=== PATIENT | female | born 1990 | race Two or more races ===

== ENCOUNTER 2024-09-08 09:17 | Inpatient (IN) | payer MEDICAID, SELFPAY ==
--- NOTE | 2024-09-08 | XR_ITS ---
Examination: MRV brain without intravenous contrast TECHNIQUE: Multiple MR venous angiographic images without intravenous contrast 3-D reconstructions Sudden onset vision left eye beginning 2 weeks ago. FINDINGS: Images are degraded by patient motion Sagittal sinus straight sinus internal cerebral vein and transverse venous channels are open No filling defects depicted IMPRESSION: No filling defects in the demonstrated venous system
--- NOTE | 2024-09-08 | XR_ITS ---
Examinations: MRI Brain without intravenous contrast. MRA brain without intravenous contrast. MRA carotids without intravenous contrast 3-D vascular reconstructions Date and time of exam: September 08, 2024 1201 hours INDICATIONS: Headaches loss of vision in the left eye beginning 2 weeks ago Technique: Multiple axial and sagittal images of the brain have been obtained MRA brain carotid images without contrast obtained, including 3-D postprocessing, vascular maximum intensity projection images Findings: Sellaturcica is not enlarged. The optic chiasm and infundibular stalk are not remarkable. Prepontine and interpeduncular cisterns are not enlarged. No localized enlargement of the medulla or alfonso. Fourth ventricle and cerebellar tonsils normal in position. Subacute hemorrhage is not seen. Fourth ventricle is midline. Mass in the cerebellopontine angle region is not evident. 7th and 8th nerve complexes exhibits symmetry. Globes are symmetrical with no retro-orbital mass. Increased white matter signal evident, in the right cerebral hemisphere Diffusion-weighted images demonstrate multiple small embolic type small acute infarcts in the right frontal, right parietal, right occipital lobe Mass-effect upon the ventricular system is not identified. MRA carotid images degraded by patient motion. MRA brain images no large vessel occlusions Impression: Multiple embolic type acute infarcts right occipital lobe right parietal lobe right frontal lobe
[2024-09-08 09:50] VITALS: BP 160/87; PULSE 82; RESP 17; TEMP 37.4; O2SAT 98; BMI 24.2
--- NOTE | 2024-09-08 10:23 | PD.EDRME ---
Rapid Medical Screening Exam RME Arrival date/time: 09/08/24 09:17 Chief Complaint: Headache Time Seen by Provider: 09/08/24 10:29 Vital signs: Vital Signs Temperature 99.3 F 09/08/24 09:50 Pulse Rate 82 09/08/24 09:50 Respiratory Rate 17 09/08/24 09:50 Blood Pressure 160/87 H 09/08/24 09:50 Pulse Oximetry (%) 98 09/08/24 09:50 Oxygen Delivery Method Room Air 09/08/24 09:50 Pulse ox 98% RME Narrative: 34-year-old female presents to the ED with a complaint of loss of vision to the left eye. She also complains of a headache that began 1 week ago. [facility] and a vision scan was performed Dr. YEPEZ sent the patient for a CT/MRI.
[2024-09-08 11:05] LABS: Alanine Aminotransferase 30 U/L (10-49); Albumin, Serum 4.8 gm/dL (3.5-5.0); Albumin/Globulin Ratio 1.6 (1.2-2.2); Alkaline Phosphatase 70 U/L (46-116); Anion Gap 10 (7-16); Aspartate Amino Transferase 33 U/L (0-34); BUN/Creatinine Ratio 19 Ratio (12-20); Bilirubin,Total 0.4 mg/dL (0.3-1.2); Blood Urea Nitrogen 13 mg/dL (9-23); Calcium 9.1 mg/dL (8.3-10.6); Calcium (Corrected) 9.1 mg/dL (8.5-10.1); Carbon Dioxide 22.3 mMol/L (20.0-31.0); Chloride 107 mMol/L (98-107); Creatinine (Component) 0.7 mg/dL (0.6-1.3); Estimated Creatinine Clearance 87.9 mL/min (>60); Globulin 3.0 gm/dL (2.3-3.5); Glucose 151 mg/dL (74-106); Osmolality,Calculated 280 (275-295); Potassium 3.8 mMol/L (3.4-5.1); Sodium 139 mMol/L (136-145); Total Protein 7.8 gm/dL (5.7-8.2); eGFR > 60 See Note
[2024-09-08 11:07] LABS: HCG Qualitative,Urine Negative
--- NOTE | 2024-09-08 11:45 | XR_ITS ---
Examination: CTA carotids with intravenous contrast CTA brain, head with intravenous contrast. 2-D sagittal, coronal reconstructions. 3-D reconstructions. Exam date and time: September 08, 2024 1352 hours INDICATIONS: Generalized head pain blurred vision left eye noticed beginning 4 days ago. CTDI: vol (mGy) 29.2 DLP: (mGycm) 147 Technique: Multiple CTA axial brain, head carotid images post intravenous contrast injection 75 cc, [id number]. 2-D sagittal, coronal reconstructions. 3-D reconstructions, 3-D post processing including vascular maximum intensity projection images. Low dose protocols were performed. One or more of the following dose reduction techniques were used; automated exposure control, adjustment of the mA and/or KV according to patient size, use of iterative reconstruction technique. Findings: No significant common carotid carotid bifurcation or internal carotid artery stenoses Dominant left vertebral artery in the neck with no critical stenoses Intracranial vertebral arteries basilar artery posterior cerebral branches fill with no large vessel occlusions Juxtasellar supraclinoid portions internal carotid arteries, M1 segments middle cerebral arteries middle cerebral artery trifurcation vessels and anterior cerebral arteries fill with no large vessel occlusions IMPRESSION: No significant neck arterial stenoses No cerebral large vessel arterial occlusions
--- NOTE | 2024-09-08 11:45 | XR_ITS ---
Examination: CT brain head without contrast. 2-D sagittal coronal reconstructions Date and time of exam:September 08, 2024 1345 hours INDICATIONS: Head pain with blurred vision left eye CTDI: vol (mGy):51.7 DLP: (mGycm):1040 Technique: Multiple CT axial sections of the brain have been obtained, 5 mm slice thickness. Contrast has not been administered. 2-D sagittal, coronal reconstructions have been obtained Low dose protocols were performed. One or more of the following dose reduction techniques were used; automated exposure control, adjustment of the mA and/or KV according to patient size, use of iterative reconstruction technique. Findings: No significant ventricular enlargement. Intra-axial or extra-axial hemorrhage density is not seen. No mass effect or midline shift Basal cisterns are not remarkable. Fourth ventricle is midline. Cranial vault intact. Impression: Negative for acute hemorrhage, mass effect or midline shift
--- NOTE | 2024-09-08 11:46 | EDNOTE_ITS ---
ED Eye Problem RME/HPI General Chief complaint: Headache Stated complaint: sent by [facility] for [facility]/ vision loss Time Seen by Provider: 09/08/24 10:29 Arrival date/time: 09/08/24 09:17 Limitations: no limitations RME / HPI RME / HPI Narrative: 34-year-old female presents to the ED with a complaint of loss of vision to the left eye. She also complains of a headache that began 1 week ago. Patient was seen by [facility]ometry [facility] and a vision scan was performed Dr. YEPEZ sent the patient for a CT/MRI. DR. PRO YEN ED EVALUATION: 34-year-old female with past medical history of hypertension (on medications) and diabetes mellitus (diet-controlled) presents to the Emergency Department with complaints of headache for one week and bilateral diminished vision. She reports the visual changes started in the left eye 7 days ago and progressed to involve the right eye 2 days ago. She also notes bilateral hand numbness and tingling, along with right greater than left leg weakness. Denies nausea, vomiting, injury, or head trauma. No known history of immunosuppressive treatment, lithium use, or cancer. Patient was advised not to drive due to visual and neurologic symptoms. Related Data Allergies Allergy/AdvReac Type Severity Reaction Status Date / Time No Known Allergies Allergy Verified 09/08/24 09:21 Review of Systems Review of Systems Systems Reviewed: All systems reviewed, normal except as documented Past Medical History Past Medical History CARDIAC: Positive Hypertension ENDOCRINE: Positive Diabetes Mellitus Type 2 Surgical History SURGICAL: Positive Section Social History SMOKING STATUS: Never smoker SUBSTANCE USE: does not use ALCOHOL: Never ED Exam General Limitations: Present no limitations General appearance: Present alert, in no apparent distress and other (complains of blurred vision) Head Head exam: Present atraumatic, normocephalic and normal inspection Eye Eye exam: Present normal appearance, PERRL and EOMI ENT ENT exam: Present normal exam, normal oropharynx and mucous membranes moist Neck Neck exam: Present normal inspection, full ROM and trachea midline Chest Chest inspection: Present normal inspection and symmetric chest wall rise Respiratory Respiratory exam: Present normal lung sounds bilaterally Cardiovascular Cardiovascular exam: Present regular rate, normal rhythm and normal heart sounds Abdominal Exam Abdominal exam: Present soft and normal bowel sounds Extremities Exam Extremities exam: Present normal inspection and full ROM Back Exam Back exam: Present normal inspection and full ROM Neurological Exam Neurological exam: Present alert, oriented X3 and CN II-XII intact Psychiatric Psychiatric exam: Present normal affect and normal mood Skin Skin exam: Present warm, dry, intact and normal color Course Quality Measures none Orders Category Date Time Status CT Screening NOW Care 09/08/24 11:46 Active MRI Screening NOW Care 09/08/24 10:[address] angio carotid w head w Stat Exams 09/08/24 11:[address] head/brain wo con Stat Exams 09/08/24 11:45 Ordered MR brain wwo MRA brn wo barbour w Stat Exams 09/08/24 Ordered MR stroke protocol brain wo con with MRA head and neck Exams 09/08/24 Completed Stat MR venogram brain wo con Stat Exams 09/08/24 Completed CBC Stat Lab 09/08/24 10:39 Completed CMP [Comprehensive Metabolic Panel] Stat Lab 09/08/24 10:39 Completed HCG Qualitative,Urine Stat Lab 09/08/24 10:49 Completed HCG,Qualitative Serum Stat Lab 09/08/24 13:17 Completed PT [Prothrombin Time with INR] Stat Lab 09/08/24 13:17 Completed Path Review Blood Smear Stat Lab 09/08/24 10:39 Completed Aspirin [Ecotrin] Med 09/08/24 13:34 Discontinued 81 mg PO X1 ONE Vital Signs Vital signs: Vital Signs Temperature 99.3 F 09/08/24 09:50 Pulse Rate 82 09/08/24 09:50 Respiratory Rate 17 09/08/24 09:50 Blood Pressure 160/87 H 09/08/24 09:50 Pulse Oximetry (%) 98 09/08/24 09:50 Oxygen Delivery Method Room Air 09/08/24 09:50 Eye MDM Narrative MDM Narrative:: INkechi am scribing for and in the presence of Dr. Joyce. Patient is a 34-year-old female with medical history notable for prediabetes, hypertension has in the emergency department with concerns for decreased vision over the last 5 days, intermittent episodes of weakness in the left upper and left lower extremity. Vital signs and exam as above. Concern for emboli, cerebral venous thrombosis, retinal detachment among others. Patient's last known well was approximately 5 days ago. Ordered MRI of the brain, MRA's as well as venogram. Also ordered labs. Discussed case with neurologist, Dr. Sahni in agreement with workup. Patient was advised not to drive due to visual and neurologic symptoms. US of bilateral eyes at bedside revealed no retinal detachment. Labs without acute hematologic or significant metabolic abnormality. MRI brain with evidence of showering of emboli, to the right occipital parietal as well as frontal lobe. Discussed case with neurologist, recommends admission for YUNG as well as hypercoagulable workup. Recommends we provide patient with aspirin 81 mg. Discussed case with hospitalist team resident Dr. Tovar for admission. Patient data External records reviewed:: [facility] previous records Clinical information provided by:: patient Social determinants that could affect healthcare access:: none Patient has the following chronic illnesses:: hypertension (on medications) and diabetes mellitus (diet-controlled) How is presenting disease/condition affected by chronic disease/condition?: exacerbated by Evaluation data The following diagnostics were reviewed and interpreted by me:: lab results and radiology exam(s) Lab and/or radiology exams considered but not ordered:: none Interpretation Summary: Labs without acute hematologic or metabolic abnormality. MRI with multiple emboli to the brain RADIOLOGY Procedure(s): MR venogram brain [facility] Accession Number(s): [id number] cc: Edd Santos MD; NO PRIMARY/FAMILY,PHYSICIAN; Lian Joyce MD~ Examination: MRV brain without intravenous contrast TECHNIQUE: Multiple MR venous angiographic images without intravenous contrast 3-D reconstructions Sudden onset vision left eye beginning 2 weeks ago. FINDINGS: Images are degraded by patient motion Sagittal sinus straight sinus internal cerebral vein and transverse venous channels are open No filling defects depicted IMPRESSION: No filling defects in the demonstrated venous system Dictated By: Edd Santos MD Procedure(s): MR stroke protocol Accession Number(s): [id number] cc: Edd Santos MD; Cristino Tenorio PA-C; NO PRIMARY/FAMILY,PHYSICIAN~ Examinations: MRI Brain without intravenous contrast. MRA brain without intravenous contrast. MRA carotids without intravenous contrast 3-D vascular reconstructions Date and time of exam: September 08, 2024 1201 hours INDICATIONS: Headaches loss of vision in the left eye beginning 2 weeks ago Technique: Multiple axial and sagittal images of the brain have been obtained MRA brain carotid images without contrast obtained, including 3-D postprocessing, vascular maximum intensity projection images Findings: Sellaturcica is not enlarged. The optic chiasm and infundibular stalk are not remarkable. Prepontine and interpeduncular cisterns are not enlarged. No localized enlargement of the medulla or alfonso. Fourth ventricle and cerebellar tonsils normal in position. Subacute hemorrhage is not seen. Fourth ventricle is midline. Mass in the cerebellopontine angle region is not evident. 7th and 8th nerve complexes exhibits symmetry. Globes are symmetrical with no retro-orbital mass. Increased white matter signal evident, in the right cerebral hemisphere Diffusion-weighted images demonstrate multiple small embolic type small acute infarcts in the right frontal, right parietal, right occipital lobe Mass-effect upon the ventricular system is not identified. MRA carotid images degraded by patient motion. MRA brain images no large vessel occlusions Impression: Multiple embolic type acute infarcts right occipital lobe right parietal lobe right frontal lobe Dictated By: Edd Santos MD Medications / Prescriptions Medications or Prescriptions considered but not ordered:: none Medication administrations:: Medication Administration History Discontinued Medications Aspirin (Aspirin Ec 81 Mg Tabec) 81 mg PO X1 ONE Stop: 09/08/24 13:35 see above if any Consultations Consultation(s) initiated? (list below): Yes Consultation #1 (Physician, Specialty, Details): See MDM Consultation #2 (Physician, Specialty, Details): See MDM Diagnosis Eye Problem Differential Diagnosis: other (optic neuritis, cerebrovascular accident (CVA), and demyelinating disease such as multiple sclerosis) Most likely diagnosis given after review of the tests above:: Multiple emboli in the brain to the right frontal, occipital, parietal lobe. Admission Indicated Admission indicated?: indicated Admission Request Was there a request for admission?: Yes Admission Attestation Admission request attestation: Discussed case with [] from Hospitalist service regarding admission. Discussed patients ED course, exam findings, labs, and radiology results. The Hospitalist [agrees,declines] to accept the patient for admission. Disposition Plan Disposition Plan: Admit Critical Care Time Critical Care Time Critical Care Time: Yes Total Critical Care Time (min.): 80 Attestation: The high probability of sudden, clinically significant deterioration in the patient?s condition required the highest level of my preparedness to intervene urgently. The services I provided to this patient were to treat and/or prevent clinically significant deterioration. Services included the following: chart data review, reviewing nursing notes and/or old charts, documentation time, senior application security consultant colla boration regarding findings and treatment options, medication orders and management, direct patient care, vital sign assessments and ordering, interpreting and reviewing diagnostic studies and lab tests. Aggregate critical care time includes only time during which I was engaged in work directly related to the patient?s care, as described above, whether at bedside or elsewhere in the Emergency Department. It did not include time spent performing other reported procedures or the services of residents, students, nurses or physician assistants. Discharge Plan Plan Patient Disposition: Admit Acute Care w/in Hospital Prescriptions/Referrals Referrals: No Primary/Family,Physician [Primary Care Provider] - In 1 week Problem List Clinical Impression: Embolic cerebral infarction Impression comment: Multiple emboli in the brain to the right frontal, occipital, parietal lobe Patient/Caregiver Discharge Instructions Print Language: Urdu Stand Alone Forms: Larisa Award Info., Patient Portal Info Letter
[2024-09-08 12:22] LABS: Basophils # (Auto) 0.0 Thou/mm3 (0.0-0.2); Basophils % (Auto) 1 % (0-2.5); Eosinophils # (Auto) 0.3 Thou/mm3 (0.0-0.5); Eosinophils % (Auto) 4 % (0-10); Hematocrit 36.8 % (36.0-46.0); Hemoglobin 11.2 g/dL (12.0-16.0); Immature Granulocytes Auto 0.03 Thou/mm3 (0.00-0.00); Lymphocytes # (Auto) 1.6 Thou/mm3 (1.0-4.8); Lymphocytes % (Auto) 23 % (10-50); Mean Corpuscular HGB Conc 30.4 g/dl (31.0-37.0); Mean Corpuscular Hemoglobin 20.3 pg (25.0-35.0); Mean Corpuscular Volume 67 fL (80-100); Monocytes # (Auto) 0.6 Thou/mm3 (0.0-0.8); Monocytes % (Auto) 8 % (0-12); Neutrophils # (Auto) 4.6 Thou/mm3 (1.8-7.7); Neutrophils % (Auto) 64 % (37-80); Nucleated Red Blood Cell # 0.00 Thou/mm3 (0.00-0.00); Nucleated Red Blood Cell % 0 /100 WBC (0); Platelet Count 348 Thou/mm3 (140-440); RDW Standard Deviation 43.2 fL (36.4-46.3); Red Blood Count 5.52 Miln/mm3 (4.00-5.20); White Blood Count 7.2 Thou/mm3 (3.6-11.0)
--- NOTE | 2024-09-08 12:41 | PC.NURSE ---
ASSUMED CARE AT THIS TIME, PT NOT IN ROOM AT [facility] [place]
[2024-09-08 13:14] VITALS: BP 136/88; PULSE 68; RESP 18; TEMP 37.1; O2SAT 99
[2024-09-08 13:23] LABS: Path Review Blood Smear Sent to Pathologist
--- NOTE | 2024-09-08 13:40 | ESHP_ITS ---
<Statement entered by Arthur Perez MD - 09/08/24 16:20> Patient seen and examined at bedside. I discussed and supervised with the news intern physician who took care of this patient. I personally saw and examined the patient. I agree with most of the assessment and plan. Patient presented with 5 days of vision changes, headache. POCUS ruled out retinal detachment. MRI showed multiple right sided embolic infarct. Neurology recommended admission with hypercoagulable workup, including YUNG. Multiple labs ordered, patient NPO after midnight for YUNG.Currently minimally symptomatic, headache improved with aspirin. No focal neurological deficits. Plan of care discussed with attending Dr. Champagne. Arthur Perez MD PGY-2 Documentation for date of: 09/08/24 HPI History of Present Illness Chief complaint: Headache History of present illness: 34F with history of HTN and prediabetes controlled with diet presents for headache and vision change. Pt reports since two weeks ago, she had lost sensations to her left hand fingers, but has now regain those sensation back. She also reports a right sided headache for one week with central vision distortion, worse on the left eye than the right. Pt denies OCP use, clotting disorder, TIA, vision loss, PE hx, DVT hx, a fib, or anyone in family with clotting disorder. On exam, CSM intact on all four extremities, no focal neuro deficit noted. NIHSS score of 0 from my examination. Admitted for hypercoagulation workup per neurology ED Course In the ED, WBC 7.2, Hgb 11.2, Na 139, K 3.8, Cl 107, Bicarb 22.3, BUN 13, Cr 0.7, Glucose . 151, Urine HCG neg. [place] MRI and MRA shows multiple embolic type acute infarcts right occipital lobe, right parietal lobe, right frontal lobe. MRI venogram shows no filling defects in the demonstrated venous system. Head CT negative for acute hemorrhage, mass effect or midline shift. CTA Head and neck shows no significant neck arterial stenoes, no cerebral LVO. Aspirin 81mg x1 given. ROS * Constitutional: NAD, a/o x 3, denies fever/chills. * GI: Denies nausea, vomiting. * CV: Denies chest pain or palpitations. * Resp: Denies SOB, cough * : Denies dysuria, CVA tenderness, suprapubic tenderness. * Neuro: Denies dizziness, no focal deficits. Past Medical History * Hypertension * Prediabetes Social History * Lives at home, independent baseline. * Denies smoking, alcoho, or drug use. Surgical History * Allergies * NKDA Home Meds * Amlodipine 5mg PO QD Past Medical History Past Medical History CARDIAC: Positive Hypertension ENDOCRINE: Positive Diabetes Mellitus Type 2 Surgical History SURGICAL: Positive Section Social History SMOKING STATUS: Never smoker SUBSTANCE USE: does not use ALCOHOL: Never Exam Vital Signs Temp Pulse Resp BP Pulse Ox O2 Del Method 98.7 F 68 18 136/88 H 99 Room Air 09/08/24 13:14 09/08/24 13:14 09/08/24 13:14 09/08/24 13:14 09/08/24 13:14 09/08/24 13:14 Narrative Exam General: Well appearing, well nourished, in no distress. Oriented x 3, normal mood and affect . Ambulating without difficulty. Skin: Good turgor, no rash, unusual bruising or prominent lesions Head: Normocephalic, atraumatic, no visible or palpable masses, depressions, or scaring. Eyes: Visual acuity intact, conjunctiva clear, sclera non-icteric, EOM intact, PERRL, no exudates or hemorrhages Mouth: Mucous membranes moist, no mucosal lesions. Pharynx: Mucosa non-inflamed, no tonsillar hypertrophy or exudate Heart: No cardiomegaly or thrills; regular rate and rhythm, no murmur or gallop Lungs: Clear to auscultation and percussion. No rales, wheeze, or rhonchi Abdomen: Bowel sounds normal, no tenderness, organomegaly, masses, or hernia Back: Spine normal without deformity or tenderness, no CVA tenderness Extremities: No amputations or deformities, cyanosis, edema or varicosities, peripheral pulses intact Musculoskeletal: Normal gait and station. No misalignment, asymmetry, crepitation, defects, tenderness, masses, effusions, decreased range of motion, instability, atrophy or abnormal strength or tone in the head, neck, spine, ribs, pelvis or extremities. Neurologic: CN 2-12 normal. Sensation to pain, touch, and proprioception normal. DTRs normal in upper and lower extremities. No pathologic reflexes. Psychiatric: Oriented X3, intact recent and remote memory, judgment and insight, normal mood and affect. Results: Labs 09/08/24 10:39 09/08/24 13:17 Labs: Short CBC 09/08/24 Range/Units 10:39 WBC 7.2 (3.6-11.0) Thou/mm3 Hgb 11.2 L (12.0-16.0) g/dL Hct 36.8 (36.0-46.0) % Plt Count 348 (140-440) Thou/mm3 BMP 09/08/24 10:39 Sodium 139 Potassium 3.8 Chloride 107 Carbon Dioxide 22.3 BUN 13 Creatinine 0.7 Glucose 151 H Calcium 9.1 Liver Function 09/08/24 Range/Units 10:39 Total Bilirubin 0.4 (0.3-1.2) mg/dL AST 33 (0-34) U/L ALT 30 (10-49) U/L Alkaline Phosphatase 70 (46-116) U/L Albumin 4.8 (3.5-5.0) gm/dL Quality Measures Quality Measures none Medications Home Medications and Allergies Home Medications ?Medication ?Instructions ?Recorded ?Confirmed ?Type amlodipine 5 mg tablet 5 mg PO QDAY 09/08/24 History Allergies Allergy/AdvReac Type Severity Reaction Status Date / Time No Known Allergies Allergy Verified 09/08/24 09:21 Visit Medications Discontinued Medications Aspirin (Aspirin Ec 81 Mg Tabec) 81 mg PO X1 ONE Stop: 09/08/24 13:35 Assessment & Plan Plan 34F with history of hypertension and prediabetes controlled with diet admitted for hypercoag work up. Pt had a right sided headache a week ago, and started having vision distortion 4 days ago. MRI head shows small emobolic acute infarct to right cerebral hemisphere. Pt has no focal neuro deficit on exam. Pending hypercoag labs. Pending YUNG. #Acute embolic cerebral infarction #Stroke NIHSS score of 0. No focal neuro deficit other than vision distortion on left eye. MRI and MRA Brain : Multiple embolic type acute infarcts right occipital lobe right parietal lobe right frontal lobe. MRI Venogram : no filling defects. CT head : neg for acute hemorrhage, mass effect, or midline shift. CTA Head and neck : No cerebral LVO, no significant neck arterial stenoses. - Neuro consult : plan for possible LP for MS workup. - HOB elevation > 30 degrees - Aspiration precaution - PT eval - Speech eval/swallow eval - Pending YUNG - Hold all anticoag until hypercoag labs drawn and LP tmr per neurology team. #Hypercoagulopathy - pending EMELY IFA Screen - pending Anti-phospholipid - Pending Antithrombin III - Pending Factor V Leiden - Pending homocysteine - Pending Lupus - Pending protein C and S activity - Pending PCR Prothrombin [id number] mutation (send out lab) - Resume anticoag once above labs are drawn and LP done #Hyperlipidemia Initial lab Triglyceride 181, cholesterol 243, LDL 147, HDL 60. - Start Lipitor 40mg HS - Outpt follow up #Hypertension - chronic medical condition -hold home amlodipine for now, may start tmr - outpt follow up #Prediabetes - diet controlled - chronic medical condition - Pending A1C lab - outpt follow up Dispo: Tele DVT prophylaxis: SCDs GI prophylaxis: Protonix 40 Diet: Regular diet Lines: Peripheral IV Code status: Full code Case discussed with my senior resident Dr. Perez Case discussed with my attending Dr. Ihsan Cueva DO PGY 1 Attending Provider Attestation/Addendum Mayte Jackson DO, attest that I was physically present for the [place] portions of the service and evaluated the patient with the resident and I reviewed and discussed the case with the resident and agree with the resident's findings and plans of care as documented above Patient is a 34-year-old female with past medical history of of hypertension and prediabetes who presented to the ED due to 1 week of headache and visual changes. 2 weeks ago. She reported some numbness in her left hand involving her middle 4th and 5th digits. 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 She currently reports resolution of her hand numbness and tingling, but has had a headache that has been persistent for the past week. She reports pain in her vertex and behind her right eye. She also says that her vision is distorted in the left lower quadrant of her bilateral visual field. In the ED, stroke alert was called and patient underwent a CT that showed no acute intracranial findings. CTA also showed no LVO or arterial stenosis. However, a brain MRI MRA showed multiple embolic acute infarcts in the right occipital lobe, right parietal lobe and right frontal lobe. An MRV was also done showing no filling defects in the venous system. Therefore, ruling out cavernous venous sinus thrombosis. Neurology was called from ED and recommends hypercoagulable workup. Patient denies any personal or family history of miscarriages, PE or DVT, cancer, autoimmune disease. She states that family history is significant for diabetes only. She also denies taking any oral contraceptives. Will admit patient to telemetry for further workup medical management of acute CVA. Will obtain echocardiogram and order hypercoagulable workup. Will hold off on any antiplatelets or anticoagulants at this time as neurology has plans for lumbar puncture tomorrow. Will start patient on statin, but hold off on antiplatelets until procedure is done. Patient states that her headache has improved from a 7 out of 10 pain to a 5 out of 10 pain after receiving aspirin. No focal goal neurological deficits on exam. Muscle strength is intact in all 4 extremities and gross sensation is also intact. Patient was able to walk in ED and denied any unsteady gait. She also denies any nausea, vomiting or dizziness at this time.
[2024-09-08 13:43] LABS: INR 1.0 (0.9-1.3); Prothrombin Time 10.9 Seconds (9.0-12.2)
[2024-09-08 13:50] LABS: HCG,Qualitative Serum Negative
--- NOTE | 2024-09-08 13:53 | PD.RESCONSUL ---
HPI Data of Consult Primary Care Provider: Physician No Primary/Family Consult Narrative History of present illness: Ms. Bang is a 34-year-old female with past medical history of hypertension and diabetes who presented to the ED on 09/08 with right sided headache, bilateral acute vision changes, bilateral hand paresthesias x 1 week. Paresthesias have since resolved. Patient reports stable right-sided headache and bilateral vision distortion in the lower visual [place]. She denies weakness. Patient denies history of stroke, TIA, arrhythmias, heart failure, miscarriage, OCP, DVT. She denies smoking, recreational drug use. Drinks 1 beer per month. Patient previously seen by optometry, workup negative. Home medications include amlodipine. Diabetes controlled with diet and exercise. Patient reports remote history of migraine, does not know what medication she was previously prescribed for this. She has not had a migraine in 3 to 4 years. Patient examined at bedside. She reports ongoing, stable right-sided headache and bilateral vision changes that distort her lower visual [place], though does not completely obstruct her vision. Patient drove herself to the ED today. cc:: cc: Review of Systems Review of Systems Narrative Review of Systems: 14 point review of system negative other than HPI. Exam Vital Signs Temp Pulse Resp BP Pulse Ox O2 Del Method 98.7 F 68 18 136/88 H 99 Room Air 09/08/24 13:14 09/08/24 13:14 09/08/24 13:14 09/08/24 13:14 09/08/24 13:14 09/08/24 13:14 Narrative Exam General: No acute distress, well nourished Eye: PERRL, EOMI, normal conjunctiva, no scleral icterus HENT: Normocephalic, atraumatic, hearing intact to conversation at normal volume, moist oral mucosa Neck: Supple, non-tender, no JVD, no lymphadenopathy Lungs: Non-labored respirations, symmetric chest rise Heart: Peripheral pulses intact bilaterally Abdomen: Soft, non-tender, non-distended Musculoskeletal: Normal range of motion and strength Skin: Skin is warm, dry, no rashes or lesions. Psychiatric: Cooperative, appropriate mood and affect Neurologic: Mental status: Orientation: Oriented to person, place, time, and situation Communication: Patient is cooperative and can follow simple instructions Language: Speech fluent, normal rate and volume, comprehension intact Cranial nerves: CN II: Visual [place] intact CN III: Pupils equal, round, and reactive to light CN III, IV, : No gaze deviation, no nystagmus Horizontal pursuit: intact Vertical pursuit: intact Ptosis: none CN V: Facial sensation to light touch intact bilaterally at the forehead, cheeks, and jaw line CN VII: Face symmetric, no facial droop appreciated CN VIII: Able to hear and respond to conversation at normal volume, intact to finger rub CN IX, X: Palate elevation symmetric, uvula midline CN XI: Head turn and shoulder shrug strong, symmetric bilaterally CN XII: Normal tongue protrusion without deviation, no fasciculations Motor: Normal bulk and tone No atrophy No abnormal movements or fasciculations Muscle strength: Shoulder abduction: R 5/5 L 5/5 Elbow flexion: R 5/5 L 5/5 Elbow extension: R 5/5 L 5/5 Hip flexion: R 5/5 L 5/5 Hip extension: R 5/5 L 5/5 Knee flexion: R 5/5 L 5/5 Knee extension: R 5/5 L 5/5 Sensory: RUE: Light touch intact LUE: Light touch intact RLE: Light touch intact LLE: Light touch intact Reflexes: Biceps (C5-6): R 2+ L 2+ Brachioradialis (C5-6): R 2+ L 2+ Triceps (C7-8): R 2+ L 2+ Patellae (L3-4): R 2+ L 2+ Achilles (S1-2):R 2+ L 2+ Cerebellum: RUE: No dysmetria (finger to nose), no dysdiadochokinesia (rapid alternating movements) LUE: No dysmetria (finger to nose), no dysdiadochokinesia (rapid alternating movements) RLE: No dysmetria (heel to cortez) LLE: No dysmetria (heel to cortez) Results Labs 09/08/24 10:39 09/08/24 13:17 Labs: Short CBC 09/08/24 Range/Units 10:39 WBC 7.2 (3.6-11.0) Thou/mm3 Hgb 11.2 L (12.0-16.0) g/dL Hct 36.8 (36.0-46.0) % Plt Count 348 (140-440) Thou/mm3 BMP 09/08/24 10:39 Sodium 139 Potassium 3.8 Chloride 107 Carbon Dioxide 22.3 BUN 13 Creatinine 0.7 Glucose 151 H Calcium 9.1 Liver Function 09/08/24 Range/Units 10:39 Total Bilirubin 0.4 (0.3-1.2) mg/dL AST 33 (0-34) U/L ALT 30 (10-49) U/L Alkaline Phosphatase 70 (46-116) U/L Albumin 4.8 (3.5-5.0) gm/dL Quality Measures Quality Measures none Medications Home Medications and Allergies Home Medications ?Medication ?Instructions ?Recorded ?Confirmed ?Type amlodipine 5 mg tablet 5 mg PO QDAY 09/08/24 09/08/24 History Allergies Allergy/AdvReac Type Severity Reaction Status Date / Time No Known Allergies Allergy Verified 09/08/24 09:21 Visit Medications Discontinued Medications Aspirin (Aspirin Ec 81 Mg Tabec) 81 mg PO X1 ONE Stop: 09/08/24 13:35 Assessment & Plan Plan # Acute ischemic infarct of right occipital, right parietal, and right frontal lobes # Hyperlipidemia Hx stroke/TIA: none Hx afib: none Smoking hx: none Initial symptoms: headache x1 wk (ongoing), b/l vision changes x1 wk (ongoing), b/l hand paresthesias (now resolved) No focal neuro deficits Previous optometry workup negative LKAW: >1 weeks ago Inital BP: 160/87 EKG: NSR HR 83, QTc 473 Initial glucose: 151 UDS: A1C: 6.5 Lipids: Triglyceride 181 high, Cholesterol 243 high, LDL 147 high, HDL 60 TSH: HCG: negative Free T4: Serial troponin: CT head w/o: Negative for acute hemorrhage CTA head/neck w/: Negative for LVO, neck arterial stenosis MRI/MRA w/ and w/o: Multiple ischemic infarcts in right occipital, right parietal, right frontal lobes MRV: Negative for filling defects YUNG: Meds given: ASCVD: DDX: Large vessel atherosclerosis (thrombus), cardioembolic, small vessel (lacunar) disease, hypercoagulable state, arterial dissection, vasculitis, substance use Plan: - YUNG - Hypercoag labs - ASA 81 mg, Plavix 75 mg x21 days, high intensity statin # MRI findings c/f demyelinating disease Plan: - LP completed, pending CSF results (assess for oligoclonal bands) # Hypertension Home med: Amlodipine Plan: - Management per primary team # Type 2 diabetes mellitus A1C: 6.5 Plan: - Management per primary team Plan discussed with Dr. Bora Regalado, PGY1 Attending Provider Attestation/Addendum I personally have seen and examined the patient at the bedside and I agreed with the resident's findings, assessment and plan of care. 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 Agreed with the continuing with further workup of TIA/CVA with echocardiogram and hypercoagulopathy workup
--- NOTE | 2024-09-08 14:44 | EKG_ITS ---
[facility] Test Date: 2024-09-08 Pat Name: KARAN NARVAEZ Department: Room: - Gender: Female Assisted Living Home Director: : 1990 Requested By: Nico Cueva Order Number: [id number] Reading MD: Nico Cueva Measurements Intervals [place] Rate: 83 P: 47 UT: 188 QRS: 16 QRSD: 85 T: 31 QT: 402 QTc: 473 Interpretive Statements SINUS RHYTHM No previous ECG available for comparison /store/S0/[id number]/ecg/[id number].pdf
--- NOTE | 2024-09-08 14:46 | PC.CC ---
Patient is a 34 year-old female who present to the hospital sent by [facility] for FRIAS/Vision loss. Anitra SHERIFF made [id number] contact with patient. ASW introduced self, role, and reason for visit.?Patient appeared alert and oriented to self, location, and situation.?Patient was pleasant and engaged in initial assessment. Patient confirmed information on demographics and reports she lives with her children and life partner, Mayank Rai . Patient reports her life partner is her medical decision maker in the event she is not able to make her own medical decisions. Patient reports that she is able to ambulate independently and complete her own ADLs. Patient reports she does not require any DME. Patient receives primary care at [facility]. Her pharmacy of choice is [facility]. Upon discharge the patient plans to return back home. information services assistant to follow up with any discharge needs.
[2024-09-08] MEDS: ASPIRIN EC 81 MG TABEC PO (14:48)
[2024-09-08 15:26] LABS: Cardiac Risk Estimate 4.1 RATIO (3.7-5.6); Cholesterol 243 mg/dL (132-200); Glucose 104 mg/dL (74-106); HDL Cholesterol 60 mg/dL (40-60); LDL Cholesterol,Calculated 147 mg/dL (0-130); Triglycerides 181 mg/dL (30-150)
[2024-09-08 16:42] LABS: Glucose Estimated Average 140 mg/dL (80-131); Hemoglobin A1C 6.5 % Hgb (4.8-6.0)
[2024-09-08 17:19] VITALS: BP 133/87; PULSE 73; RESP 17; TEMP 37.2; O2SAT 98
[2024-09-08] MEDS: PANTOPRAZOLE 40 MG TABLET PO (17:29)
[2024-09-08 18:32] VITALS: BP 144/89; PULSE 70; RESP 20; TEMP 36.2; O2SAT 97
[2024-09-08 20:00] VITALS: BP 143/89; PULSE 72; PULSE 74; RESP 11; TEMP 36.7; O2SAT 99
--- NOTE | 2024-09-08 20:27 | ECHO_ITS ---
Transthoracic Echo Report Ht (in): 62 Wt (lb): 153 Exam Location: Echo Lab Status: Inpatient Registered Phlebotomist Part Time: Florina Quevedo Indications: Procedure Performed: BP: 140 / 85 HR: 77 Technical Quality: Technically difficult study MEASUREMENTS (Male / Female) Normal Values 2D ECHO LV Diastolic Diameter PLAX 4.0 cm 4.2 - 5.9 / 3.9 - 5.3 cm LV Systolic Diameter PLAX 2.4 cm IVS Diastolic Thickness 0.8 cm 0.6 - 1.0 / 0.6 - 0.9 cm LVPW Diastolic Thickness 1.0 cm 0.6 - 1.0 / 0.6 - 0.9 cm LV Relative Wall Thickness 0.5 LVOT Diameter 1.5 cm LA Volume Index 20.3 cm?/m? 16 - 28 cm?/m? M-MODE Aortic Root Diameter MM 2.1 cm LA Systolic Diameter MM 2.4 cm LA Ao Ratio MM 1.1 AV Cusp Separation MM 1.1 cm DOPPLER AV Peak Velocity 148.0 cm/s AV Peak Gradient 8.8 mmHg AV Mean Gradient 5.0 mmHg AV Velocity Time Integral 30.4 cm LVOT Peak Velocity 133.5 cm/s LVOT Peak Gradient 7.1 mmHg LVOT Velocity Time Integral 26.3 cm LVOT Cardiac Index 2029.9 cm?/min?m? AV Area Cont Eq vti 1.5 cm? AV Area Cont Eq pk 1.6 cm? MV Area PHT 4.1 cm? Mitral E Point Velocity 58.7 cm/s Mitral A Point Velocity 77.6 cm/s Mitral E to A Ratio 0.8 LV E' Lateral Velocity 14.8 cm/s Mitral E to LV E' Lateral Ratio 4.0 LV E' Septal Velocity 6.3 cm/s Mitral E to LV E' Septal Ratio 9.3 PV Peak Velocity 130.0 cm/s PV Peak Gradient 6.8 mmHg FINDINGS Left Ventricle Normal left ventricular size, wall thickness, systolic function with no obvious regional wall motion abnormalities. The ejection fraction is visually estimated at 55-60%. There is grade I diastolic dysfunction of the left ventricle (impaired relaxation pattern). Right Ventricle The right ventricle is normal in size and systolic function. Left Atrium The left atrium is normal by two-dimensional, color flow and Doppler imaging with no structural abnormalities, no thrombus formation present. Right Atrium The right atrium is normal by two-dimensional imaging, color flow and Doppler imaging with no structural abnormalities, no thrombus formation present. Atrial Septum The interatrial septum appears normal with no evidence of a shunt. Aorta The aorta is normal by two-dimensional, color flow and Doppler interrogation. Mitral Valve The mitral valve is normal by two-dimensional, color flow and Doppler interrogation. There is no significant mitral valve regurgitation, stenosis or prolapse. Aortic Valve The aortic valve is trileaflet and normal by two-dimensional, color flow and Doppler interrogation. There is no significant aortic valve regurgitation. Tricuspid Valve The tricuspid valve is normal by two-dimensional, color flow and Doppler interrogation. There is trace tricuspid valve regurgitation. Pulmonic Valve The pulmonic valve is not well visualized. There is no significant pulmonic valve regurgitation. Vessels The pulmonary artery appears normal. The inferior vena cava pulmonary and hepatic veins appear normal. Pericardium The pericardium is normal by two-dimensional imaging. There is no significant pericardial effusion. CONCLUSIONS Indication: Stroke Normal LV size and function. Estimated EF at 55-60%. Grade I diastolic dysfunction. The RV is normal in size and systolic function. Trace TR. Ilir Barahona (Electronically Signed) Final Date: 10 September 2024 00:54
[2024-09-08 20:57] LABS: Glucose,CSF 64 mg/dL (40-70); Protein Total,CSF 31 mg/dL (8-32)
[2024-09-08] MEDS: ATORVASTATIN CALCIUM 20 MG TABLET 40 MG PO (21:12)
[2024-09-08 21:24] LABS: Coccid Serology, CF CSF (UCD)* See Sep Rpt
[2024-09-08 23:11] LABS: CSF Cell Count Tube # Tube # 4; CSF Color Colorless (Colorless); CSF Red Blood Cell 2 /cmm; CSF White Blood Cell 15 /cmm; CSF, Appearance Clear (Clear)
[2024-09-08 23:12] LABS: CSF Mononuclear 50 %; CSF Polynuclear WBC 50 %
--- NOTE | 2024-09-08 23:57 | PD.EVENT ---
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
[2024-09-09] VITALS (24 sets, daily range): BP systolic 115–156; BP diastolic 77–107; PULSE 65–99; RESP 9–22; TEMP 36.4–37.5; O2SAT 95–100; BMI 28.0; BMI 28.1
[2024-09-09 06:21] LABS: Misc Send Out* See Sep Rpt
[2024-09-09 06:28] LABS: Basophils # (Auto) 0.1 Thou/mm3 (0.0-0.2); Basophils % (Auto) 1 % (0-2.5); Eosinophils # (Auto) 0.2 Thou/mm3 (0.0-0.5); Eosinophils % (Auto) 3 % (0-10); Hematocrit 35.4 % (36.0-46.0); Hemoglobin 11.0 g/dL (12.0-16.0); Immature Granulocytes Auto 0.01 Thou/mm3 (0.00-0.00); Lymphocytes # (Auto) 1.5 Thou/mm3 (1.0-4.8); Lymphocytes % (Auto) 23 % (10-50); Mean Corpuscular HGB Conc 31.1 g/dl (31.0-37.0); Mean Corpuscular Hemoglobin 20.4 pg (25.0-35.0); Mean Corpuscular Volume 66 fL (80-100); Monocytes # (Auto) 0.6 Thou/mm3 (0.0-0.8); Monocytes % (Auto) 8 % (0-12); Neutrophils # (Auto) 4.4 Thou/mm3 (1.8-7.7); Neutrophils % (Auto) 65 % (37-80); Nucleated Red Blood Cell # 0.00 Thou/mm3 (0.00-0.00); Nucleated Red Blood Cell % 0 /100 WBC (0); Platelet Count 298 Thou/mm3 (140-440); RDW Standard Deviation 42.9 fL (36.4-46.3); Red Blood Count 5.39 Miln/mm3 (4.00-5.20); White Blood Count 6.7 Thou/mm3 (3.6-11.0)
[2024-09-09 06:50] LABS: Alanine Aminotransferase 27 U/L (10-49); Albumin, Serum 4.3 gm/dL (3.5-5.0); Albumin/Globulin Ratio 1.5 (1.2-2.2); Alkaline Phosphatase 65 U/L (46-116); Anion Gap 11 (7-16); Aspartate Amino Transferase 26 U/L (0-34); BUN/Creatinine Ratio 23 Ratio (12-20); Bilirubin,Total 0.4 mg/dL (0.3-1.2); Blood Urea Nitrogen 16 mg/dL (9-23); Calcium 8.6 mg/dL (8.3-10.6); Calcium (Corrected) 8.6 mg/dL (8.5-10.1); Carbon Dioxide 22.6 mMol/L (20.0-31.0); Chloride 107 mMol/L (98-107); Creatinine (Component) 0.7 mg/dL (0.6-1.3); Estimated Creatinine Clearance 101.4 mL/min (>60); Globulin 2.9 gm/dL (2.3-3.5); Glucose 148 mg/dL (74-106); Magnesium 1.6 mg/dL (1.6-2.6); Osmolality,Calculated 285 (275-295); Phosphorous 3.3 mg/dL (2.4-5.1); Potassium 3.7 mMol/L (3.4-5.1); Sodium 141 mMol/L (136-145); Thyroid Stimulating Hormone 1.83 uIU/mL (0.55-4.78); Total Protein 7.2 gm/dL (5.7-8.2); eGFR > 60 See Note
[2024-09-09] MEDS: Magnesium Sulfate 4 GM Ivpb 4 GM/50 ML BAG IV (09:04)
[2024-09-09] MEDS: PANTOPRAZOLE 40 MG TABLET PO (09:05)
[2024-09-09] MEDS: CLOPIDOGREL BISULFATE 75 MG TABLET PO (09:05)
[2024-09-09] MEDS: ASPIRIN EC 81 MG TABEC PO (09:05)
--- NOTE | 2024-09-09 09:12 | PC.SS ---
SS follow up note; Stroke work up. Neuro following. Patient will discharge home when medically cleared.
--- NOTE | 2024-09-09 10:41 | PD.RESCONSUL ---
HPI Data of Consult Requesting Physician: Mayte Champagne DO Admitting Provider: Mayte Champagne DO Attending Provider: Mayte Champagne DO Primary Care Provider: Physician No Primary/Family Consult Narrative History of present illness: The patient is a 34-year-old female with past medical history significant for hypertension and prediabetes controlled with diet presented to ED on 09/08/2024 with chief complaint of headache and blurry vision. The patient also reported that for past 2 weeks she was having mild loss of sensation to her left hand fingers, that she has gained back. She reported her vision has been distorted, worse on the left eye. She denied any extensive family history of cardiac disorder or stroke in the family. Patient denied any dizziness, chest pain, SOB, palpitations, any new onset weakness, or tingling sensation, loss imbalance, or changes in voice. During my evaluation, her vitals were stable, saturating 97% on room air. Labs were significant for white count 6.7, hemoglobin 11.0, MCV 66, hypercoagulable study pending, sodium 141, potassium 3.7, renal function WNL, magnesium 1.6, TSH 1.83, lipid panel revealing triglyceride 181, total cholesterol 243, LDL 147, HDL 60 and A1c 6.5. MRI/MRA brain revealed multiple embolic type acute infarcts right occipital lobe, right parietal lobe and right frontal lobe. Previously head and neck CTA, head CT were negative. EKG revealed sinus rhythm. Past medical history: As mentioned above Surgical history: sections Family history: Unremarkable Social history: with 2 kids, denies any alcohol, tobacco or illicit drug use. Medications: Amlodipine 5 mg daily Allergies: No known allergies Cardiology consultation was done for further evaluation of acute embolic stroke. cc:: cc: Mayte Champagne DO Review of Systems Review of Systems Systems Reviewed: All systems reviewed, normal except as documented Exam Vital Signs Temp Pulse Resp BP Pulse Ox O2 Del Method 97.7 F 77 18 128/81 99 Room Air 09/09/24 08:00 09/09/24 08:00 09/09/24 08:00 09/09/24 08:00 09/09/24 08:00 09/09/24 08:00 Narrative Exam General: No acute distress, Alert and Oriented x 3 HEENT: Moist mucous membranes, oropharynx clear Neck: Supple, No masses, No JVD CVS: S1S2 Regular rate and rhythm, No murmurs, rubs or gallops Lungs: Clear to auscultation with no accessory use, no wheeze no rhonchi Abd: Soft, NT/ND, +BS, no organomegaly Ext: No edema, warm and well perfused Skin: No rash Psych: Appropriate mood and affect Results Labs 09/10/24 05:04 09/10/24 05:04 Labs: Short CBC 09/08/24 09/09/24 Range/Units 10:39 05:49 WBC 7.2 6.7 (3.6-11.0) Thou/mm3 Hgb 11.2 L 11.0 L (12.0-16.0) g/dL Hct 36.8 35.4 L (36.0-46.0) % Plt Count 348 298 D (140-440) Thou/mm3 BMP 09/08/24 09/08/24 09/09/24 10:39 13:17 05:49 Sodium 139 141 Potassium 3.8 3.7 Chloride 107 107 Carbon Dioxide 22.3 22.6 BUN 13 16 Creatinine 0.7 0.7 Glucose 151 H 104 148 H Calcium 9.1 8.6 Liver Function 09/08/24 09/09/24 Range/Units 10:39 05:49 Total Bilirubin 0.4 0.4 (0.3-1.2) mg/dL AST 33 26 (0-34) U/L ALT 30 27 (10-49) U/L Alkaline Phosphatase 70 65 (46-116) U/L Albumin 4.8 4.3 D (3.5-5.0) gm/dL Quality Measures Quality Measures none Medications Home Medications and Allergies Home Medications ?Medication ?Instructions ?Recorded ?Confirmed ?Type amlodipine 5 mg tablet 5 mg PO QDAY 09/08/24 09/08/24 History Allergies Allergy/AdvReac Type Severity Reaction Status Date / Time No Known Allergies Allergy Verified 09/08/24 09:21 Visit Medications Acetaminophen (Acetaminophen 325 Mg Tablet) 650 mg PO Q6HR PRN PRN Reason: FEVER >101 Stop: 10/08/24 15:39 Aspirin (Aspirin Ec 81 Mg Tabec) 81 mg PO QDAY [facility] Stop: 10/09/24 08:59 Last Admin: 09/09/24 09:05 Dose: 81 mg Atorvastatin Calcium (Atorvastatin Calcium 20 Mg Tablet) 40 mg PO HS [facility] Stop: 10/08/24 20:59 Last Admin: 09/08/24 21:12 Dose: 40 mg Clopidogrel Bisulfate (Clopidogrel Bisulfate 75 Mg Tablet) 75 mg PO QDAY [facility] Stop: 10/09/24 08:59 Last Admin: 09/09/24 09:05 Dose: 75 mg Dextrose (Dextrose 50%-Water Inj 50 Ml Syringe) 25 ml IV Q15MIN PRN PRN Reason: BG 50-70 responsive npo pt Stop: 10/08/24 14:43 Dextrose (Dextrose 50%-Water Inj 50 Ml Syringe) 50 ml IV Q15MIN PRN PRN Reason: BG <50 OR BG <70 & pt unresponsive Stop: 10/08/24 14:43 Glucagon (Glucagon Inj 1 Mg Vial) 1 mg IM Q15MIN PRN PRN Reason: BG <70, and no IV access Magnesium Sulfate (Magnesium Sulfate Ivpb) 4 gm in 50 mls @ 12.5 mls/hr IV X1 ONE Stop: 09/09/24 11:54 Last Admin: 09/09/24 09:04 Dose: 12.5 mls/hr Insulin Human Lispro (Insulin Lispro (Admelog) 1 Unit/0.01 Ml Unit) 0 unit SC AC [facility]; Protocol Stop: 10/08/24 16:59 Last Admin: 09/09/24 07:41 Dose: Not Given Pantoprazole Sodium (Pantoprazole 40 Mg Tablet) 40 mg PO QDAY [facility] Stop: 10/09/24 08:59 Last Admin: 09/09/24 09:05 Dose: 40 mg Discontinued Medications Aspirin (Aspirin Ec 81 Mg Tabec) 81 mg PO X1 ONE Stop: 09/08/24 13:35 Last Admin: 09/08/24 14:48 Dose: 81 mg Pantoprazole Sodium (Pantoprazole 40 Mg Tablet) 40 mg PO X1 ONE Stop: 09/08/24 16:08 Last Admin: 09/08/24 17:29 Dose: 40 mg Assessment & Plan Plan The patient is a 34-year-old female with past medical history significant for hypertension and prediabetes controlled with diet presented to ED on 09/08/2024 with chief complaint of headache and blurry vision, was found to have right occipital, right frontal and right parietal ischemic embolic stroke. Cardiology consultation was done for further workup regarding acute embolic stroke. #Acute ischemic right frontal, right parietal and right occipital stroke Patient presented with blurriness more in her left eye, and severe headache. Found to have acute ischemic right frontal, right parietal and right occipital stroke in MRI/MRA brain. - Atorvastatin 80 Mg daily - Aspirin and clopidogrel, as recommended by neurologist - Permissive hypertension for first 24 to 48 hours - Recommend aggressive lifestyle and dietary changes during the discharge time. - Telemetry monitoring - Hypercoagulability workup pending - TTE and YUNG ordered, pending #Hypertension #Hyperlipidemia #Prediabetes Patient has history of hypertension, he is on 5 mg of amlodipine daily, lipid panel significant for hyperlipidemia, and A1c in prediabetic range. - Recommended to keep systolic blood pressure less than 130 mmHg, after 24 to 48 hours of permissive hypertension - Atorvastatin 80 Mg daily - Start on antidiabetic medications, to maintain euglycemia Rest of the management deferred to primary hospitalist team and neurology team. Thank you for cardiology consultation. We appreciate the opportunity to participate in this patient care. We will continue to follow-up on this patient. The patient's management plan was discussed with my attending physician MD Mckay Bañuelos MD, PGY3 Attending Provider Attestation/Addendum I have personally seen and examined the patient separately on the above date of service and discussed the plan of care with the resident. I reviewed the resident Dr. Mckay Guthrie consultation progress note and agree with the resident findings and plan in the note above and have also edited the documentation to reflect my findings and plan. Patient admitted for stroke and primary team consulted for YUNG. Appropriate indication for YUNG Patient denies any kind of swallowing problems or any kind of esophageal interventions or previous surgeries. Patient denies any kind of gastric ulcers bleeding and any other hematemesis or hematochezia. Patient denies any issues with anesthesia previously. Patient explained all the risks, benefits and alternatives of YUNG including the risk of perforation, bleeding, respiratory failure secondary to sedation, injury to teeth gums esophagus and stomach. Patient understands all risks and benefits and provided consent for the procedure. Patient has been kept n.p.o. today and completed the YUNG this evening without any complications. YUNG showed normal LV function normal RV function. No evidence of any PFO or ASD or any LA or SYMONE thrombus. No evidence of any cardioembolic sources but stroke noted. Recommend strict control of blood pressure with calcium blockers as well as ARB to keep systolic blood pressure above around 120 mmHg. Neurology following and further recommendations as per neurology for the stroke Management of rest of the medical conditions as per primary team and other consultants. Thank you for the consult and allowing me to participate in the care of the patient. Cardiology will continue to follow. Ilir Barahona M.D. Interventional Cardiology
--- NOTE | 2024-09-09 11:11 | PC.PT ---
PT eval only. Patient was xI with bed mobility, transfers, and ambulation. Patient is safe to ambulate in the halls and to the bathroom with no AD and no staff. RN made aware.
--- NOTE | 2024-09-09 13:50 | ESPR_ITS ---
Documentation for date of: 09/09/24 Subjective Subjective Interval history: Patient examined at bedside. Stable b/l lower visual field distortion, denies headache. Denies new symptoms Exam Vital Signs Temp Pulse Resp BP Pulse Ox O2 Del Method 97.5 F 77 9 L 140/85 H 99 Room Air 09/09/24 12:00 09/09/24 12:00 09/09/24 12:00 09/09/24 12:00 09/09/24 12:00 09/09/24 12:00 Narrative Exam General: No acute distress, well nourished Eye: PERRL, EOMI, normal conjunctiva, no scleral icterus HENT: Normocephalic, atraumatic, hearing intact to conversation at normal volume, moist oral mucosa Neck: Supple, non-tender, no JVD, no lymphadenopathy Lungs: Non-labored respirations, symmetric chest rise Heart: Peripheral pulses intact bilaterally Abdomen: Soft, non-tender, non-distended Musculoskeletal: Normal range of motion and strength Skin: Skin is warm, dry, no rashes or lesions. Psychiatric: Cooperative, appropriate mood and affect Neurologic: Mental status: Orientation: Oriented to person, place, time, and situation Communication: Patient is cooperative and can follow simple instructions Language: Speech fluent, normal rate and volume, comprehension intact Cranial nerves: CN II: Visual galloway intact CN III: Pupils equal, round, and reactive to light CN III, IV, : No gaze deviation, no nystagmus Horizontal pursuit: intact Vertical pursuit: intact Ptosis: none CN V: Facial sensation to light touch intact bilaterally at the forehead, cheeks, and jaw line CN VII: Face symmetric, no facial droop appreciated CN VIII: Able to hear and respond to conversation at normal volume, intact to finger rub CN IX, X: Palate elevation symmetric, uvula midline CN XI: Head turn and shoulder shrug strong, symmetric bilaterally CN XII: Normal tongue protrusion without deviation, no fasciculations Motor: Normal bulk and tone No atrophy No abnormal movements or fasciculations Muscle strength: Shoulder abduction: R 5/5 L 5/5 Elbow flexion: R 5/5 L 5/5 Elbow extension: R 5/5 L 5/5 Hip flexion: R 5/5 L 5/5 Hip extension: R 5/5 L 5/5 Knee flexion: R 5/5 L 5/5 Knee extension: R 5/5 L 5/5 Sensory: RUE: Light touch intact LUE: Light touch intact RLE: Light touch intact LLE: Light touch intact Reflexes: Biceps (C5-6): R 2+ L 2+ Brachioradialis (C5-6): R 2+ L 2+ Triceps (C7-8): R 2+ L 2+ Patellae (L3-4): R 2+ L 2+ Achilles (S1-2):R 2+ L 2+ Cerebellum: RUE: No dysmetria (finger to nose), no dysdiadochokinesia (rapid alternating movements) LUE: No dysmetria (finger to nose), no dysdiadochokinesia (rapid alternating movements) RLE: No dysmetria (heel to [place]) LLE: No dysmetria (heel to [place]) Objective Labs 09/10/24 05:04 09/10/24 05:04 Labs: Laboratory Results - last 24 hr 09/08/24 09/08/24 09/08/24 10:39 13:17 19:40 WBC RBC Hgb Hct MCV MCH MCHC RDW Std Deviation Plt Count Neut % (Auto) Lymph % (Auto) [place] % (Auto) Eos % (Auto) Baso % (Auto) Neut # (Auto) Lymph # (Auto) [place] # (Auto) Eos # (Auto) Baso # (Auto) Immature Gran # (Auto) Absolute Nucleated RBC Immature Gran % Nucleated RBC % Sodium Potassium Chloride Carbon Dioxide Anion Gap BUN Creatinine Estim Creat Clear Calc eGFR BUN/Creatinine Ratio Glucose [address] Glu mg/dL 140 H Hemoglobin A1c 6.5 H Calculated Osmolality Calcium Corrected Calcium Phosphorus Magnesium Total Bilirubin AST ALT Alkaline Phosphatase Total Protein Albumin Globulin Albumin/Globulin Ratio Triglycerides 181 H Cholesterol 243 H LDL Cholesterol, Calc 147 H HDL Cholesterol 60 Cholesterol/HDL Ratio 4.1 TSH HCG, Qual Negative CSF Appearance Clear CSF Color Colorless CSF WBC 15 CSF RBC 2 CSF Cell Count Tube # Tube # 4 CSF Mononuclear WBCs 50 CSF Polynuclear WBCs 50 CSF Glucose 64 CSF Total Protein 31 Misc Test Result Cancelled 09/09/24 05:49 WBC 6.7 RBC 5.39 H Hgb 11.0 L Hct 35.4 L MCV 66 L MCH 20.4 L MCHC 31.1 RDW Std Deviation 42.9 Plt Count 298 D Neut % (Auto) 65 Lymph % (Auto) 23 [place] % (Auto) 8 Eos % (Auto) 3 Baso % (Auto) 1 Neut # (Auto) 4.4 Lymph # (Auto) 1.5 [place] # (Auto) 0.6 Eos # (Auto) 0.2 Baso # (Auto) 0.1 Immature Gran # (Auto) 0.01 H Absolute Nucleated RBC 0.00 Immature Gran % 0 Nucleated RBC % 0 Sodium 141 Potassium 3.7 Chloride 107 Carbon Dioxide 22.6 Anion Gap 11 BUN 16 Creatinine 0.7 Estim Creat Clear Calc 101.4 eGFR > 60 BUN/Creatinine Ratio 23 H Glucose [address] Glu mg/dL Hemoglobin A1c Calculated Osmolality 285 Calcium 8.6 Corrected Calcium 8.6 Phosphorus 3.3 Magnesium 1.6 Total Bilirubin 0.4 AST 26 ALT 27 Alkaline Phosphatase 65 Total Protein 7.2 Albumin 4.3 D Globulin 2.9 Albumin/Globulin Ratio 1.5 Triglycerides Cholesterol LDL Cholesterol, Calc HDL Cholesterol Cholesterol/HDL Ratio TSH 1.83 HCG, Qual CSF Appearance CSF Color CSF WBC CSF RBC CSF Cell Count Tube # CSF Mononuclear WBCs CSF Polynuclear WBCs CSF Glucose CSF Total Protein Misc Test Result Quality Measures Quality Measures none Assessment & Plan Assessment Current Active Medications: Generic Name Dose Route Start Last Admin Trade Name Freq PRN Reason Stop Dose Admin Acetaminophen 650 mg 09/08/24 15:40 Acetaminophen 325 Mg Tablet PO 10/08/24 15:39 Q6HR PRN FEVER >101 Aspirin 81 mg 09/09/24 09:00 09/09/24 09:05 Aspirin Ec 81 Mg Tabec PO 10/09/24 08:59 81 mg QDAY MALDONADO Administration Atorvastatin Calcium 40 mg 09/08/24 21:00 09/08/24 21:12 Atorvastatin Calcium 20 Mg Tablet PO 10/08/24 20:59 40 mg HS MALDONADO Administration Clopidogrel Bisulfate 75 mg 09/09/24 09:00 09/09/24 09:05 Clopidogrel Bisulfate 75 Mg Tablet PO 10/09/24 08:59 75 mg QDAY MALDONADO Administration Dextrose 25 ml 09/08/24 14:44 Dextrose 50%-Water Inj 50 Ml Syringe IV 10/08/24 14:43 Q15MIN PRN BG 50-70 responsive npo pt Dextrose 50 ml 09/08/24 14:44 Dextrose 50%-Water Inj 50 Ml Syringe IV 10/08/24 14:43 Q15MIN PRN BG <50 OR BG <70 & pt unresponsive Glucagon 1 mg 09/08/24 14:44 Glucagon Inj 1 Mg Vial IM Q15MIN PRN BG <70, and no IV access Insulin Human Lispro 0 unit 09/08/24 17:00 09/09/24 11:40 Insulin Lispro (Admelog) 1 Unit/0.01 Ml Unit SC 10/08/24 16:59 Not Given AC MALDONADO Protocol Pantoprazole Sodium 40 mg 09/09/24 09:00 09/09/24 09:05 Pantoprazole 40 Mg Tablet PO 10/09/24 08:59 40 mg QDAY MALDONADO Administration Plan # Acute ischemic infarct of right occipital, right parietal, and right frontal lobes # Hyperlipidemia Hx stroke/TIA: none Hx afib: none Smoking hx: none Initial symptoms: headache x1 wk (ongoing), b/l vision changes x1 wk (ongoing), b/l hand paresthesias (now resolved) No focal neuro deficits Previous optometry workup negative LKAW: >1 weeks ago Inital BP: 160/87 EKG: NSR HR 83, QTc 473 Initial glucose: 151 A1C: 6.5 Lipids: Triglyceride 181 high, Cholesterol 243 high, LDL 147 high, HDL 60 TSH: 1.83 HCG: negative PT, PTT, INR WNL CT head w/o: Negative for acute hemorrhage CTA head/neck w/: Negative for LVO, neck arterial stenosis MRI/MRA w/ and w/o: Multiple ischemic infarcts in right occipital, right parietal, right frontal lobes MRV: Negative for filling defects YUNG: Meds given: DDX: Large vessel atherosclerosis (thrombus), cardioembolic, small vessel (lacunar) disease, hypercoagulable state, arterial dissection, vasculitis, substance use Plan: - YUNG - Hypercoag labs - ASA 81 mg, Plavix 75 mg x 60 days given embolic appearance on MRI (multifocal acute infarcts in different vascular territories) - Extended EKG monitoring in outpatient setting - High intensity statin # MRI findings c/f demyelinating disease CSF unremarkable (WBC 15, RBC 2, mono 50%, poly%, glucose 64, protein 31) Plan: - Pending CSF oligoclonal bands # Hypertension Home med: Amlodipine Plan: - Management per primary team # Type 2 diabetes mellitus A1C: 6.5 Plan: - Management per primary team Plan discussed with Dr. Bora Regalado, PGY1 Attending Provider Attestation/Addendum Patient was seen and examined at the bedside and I agreed with resident's findings, assessment and plan of care. no focal deficit on exam. Headache and vision prob: resolved. YUNG: negative CSF for MS panel: pending fu with extended holter monitoring and hypercoag panel. Stable for d/c home tomorrow.
--- NOTE | 2024-09-09 14:24 | ESPR_ITS ---
<Statement entered by Andrea Dueñas MD - 09/13/24 08:03> I reviewed above note and agree with findings and plans. I have also personally examined the patient with medicine team and went over assessment and plan with medical team including internal control specialist and resident physician. <Statement entered by Arthur Perez MD - 09/09/24 15:06> Patient seen and examined at bedside. I discussed and supervised with the internal control specialist physician who took care of this patient. I personally saw and examined the patient. I agree with most of the assessment and plan. Patient doing well, pending YUNG. Hypercoagulation workup pending. Lumbar puncture performed, MS panel pending. A1c elevated at 6.5, continue ISS. Plan of care discussed with attending Dr. Dueñas. Arthur Perez MD PGY-2 Documentation for date of: 09/09/24 Subjective Subjective Interval history: Patient reports no headache today, vision symptoms stable, denies new numbness, tingling, or weakness. No speech difficulty, no dizziness, chest pain, or SOB. Denies nausea, vomiting, or swallowing difficulty. Ate breakfast without issues. Slept well overnight. Voiding normally; no BMs since yesterday. Overall feels ?okay? and notes gradual improvement. Exam Vital Signs Temp Pulse Resp BP Pulse Ox O2 Del Method 97.5 F 77 9 L 140/85 H 99 Room Air 09/09/24 12:00 09/09/24 12:00 09/09/24 12:00 09/09/24 12:00 09/09/24 12:00 09/09/24 12:00 Narrative Exam Gen: Well-appearing, conversant, NAD Neuro: AOx3, CN II-XII grossly intact, 5/5 strength all extremities, intact sensation, no dysmetria HEENT: NC/AT, PERRL, EOMI, no nystagmus, or facial asymmetry CV: RRR, no murmur Pulm: CTA bilaterally Abd: Soft, NT/ND Skin: Warm, dry, no rash Extremities: No edema, normal pulses Psych: Appropriate affect, cooperative Objective Labs 09/09/24 05:49 09/09/24 05:49 Labs: Laboratory Results - last 24 hr 09/08/24 09/08/24 09/08/24 10:39 13:17 19:40 WBC RBC Hgb Hct MCV MCH MCHC RDW Std Deviation Plt Count Neut % (Auto) Lymph % (Auto) [place] % (Auto) Eos % (Auto) Baso % (Auto) Neut # (Auto) Lymph # (Auto) [place] # (Auto) Eos # (Auto) Baso # (Auto) Immature Gran # (Auto) Absolute Nucleated RBC Immature Gran % Nucleated RBC % Sodium Potassium Chloride Carbon Dioxide Anion Gap BUN Creatinine Estim Creat Clear Calc eGFR BUN/Creatinine Ratio Glucose [address] Glu mg/dL 140 H Hemoglobin A1c 6.5 H Calculated Osmolality Calcium Corrected Calcium Phosphorus Magnesium Total Bilirubin AST ALT Alkaline Phosphatase Total Protein Albumin Globulin Albumin/Globulin Ratio Triglycerides 181 H Cholesterol 243 H LDL Cholesterol, Calc 147 H HDL Cholesterol 60 Cholesterol/HDL Ratio 4.1 TSH CSF Appearance Clear CSF Color Colorless CSF WBC 15 CSF RBC 2 CSF Cell Count Tube # Tube # 4 CSF Mononuclear WBCs 50 CSF Polynuclear WBCs 50 CSF Glucose 64 CSF Total Protein 31 Misc Test Result Cancelled 09/09/24 05:49 WBC 6.7 RBC 5.39 H Hgb 11.0 L Hct 35.4 L MCV 66 L MCH 20.4 L MCHC 31.1 RDW Std Deviation 42.9 Plt Count 298 D Neut % (Auto) 65 Lymph % (Auto) 23 [place] % (Auto) 8 Eos % (Auto) 3 Baso % (Auto) 1 Neut # (Auto) 4.4 Lymph # (Auto) 1.5 [place] # (Auto) 0.6 Eos # (Auto) 0.2 Baso # (Auto) 0.1 Immature Gran # (Auto) 0.01 H Absolute Nucleated RBC 0.00 Immature Gran % 0 Nucleated RBC % 0 Sodium 141 Potassium 3.7 Chloride 107 Carbon Dioxide 22.6 Anion Gap 11 BUN 16 Creatinine 0.7 Estim Creat Clear Calc 101.4 eGFR > 60 BUN/Creatinine Ratio 23 H Glucose [address] Glu mg/dL Hemoglobin A1c Calculated Osmolality 285 Calcium 8.6 Corrected Calcium 8.6 Phosphorus 3.3 Magnesium 1.6 Total Bilirubin 0.4 AST 26 ALT 27 Alkaline Phosphatase 65 Total Protein 7.2 Albumin 4.3 D Globulin 2.9 Albumin/Globulin Ratio 1.5 Triglycerides Cholesterol LDL Cholesterol, Calc HDL Cholesterol Cholesterol/HDL Ratio TSH 1.83 CSF Appearance CSF Color CSF WBC CSF RBC CSF Cell Count Tube # CSF Mononuclear WBCs CSF Polynuclear WBCs CSF Glucose CSF Total Protein Misc Test Result Quality Measures Quality Measures VTE prophylaxis Assessment & Plan Assessment Current Active Medications: Generic Name Dose Route Start Last Admin Trade Name Freq PRN Reason Stop Dose Admin Acetaminophen 650 mg 09/08/24 15:40 Acetaminophen 325 Mg Tablet PO 10/08/24 15:39 Q6HR PRN FEVER >101 Aspirin 81 mg 09/09/24 09:00 09/09/24 09:05 Aspirin Ec 81 Mg Tabec PO 10/09/24 08:59 81 mg QDAY MALDONADO Administration Atorvastatin Calcium 40 mg 09/08/24 21:00 09/08/24 21:12 Atorvastatin Calcium 20 Mg Tablet PO 10/08/24 20:59 40 mg HS MALDONADO Administration Clopidogrel Bisulfate 75 mg 09/09/24 09:00 09/09/24 09:05 Clopidogrel Bisulfate 75 Mg Tablet PO 10/09/24 08:59 75 mg QDAY MALDONADO Administration Dextrose 25 ml 09/08/24 14:44 Dextrose 50%-Water Inj 50 Ml Syringe IV 10/08/24 14:43 Q15MIN PRN BG 50-70 responsive npo pt Dextrose 50 ml 09/08/24 14:44 Dextrose 50%-Water Inj 50 Ml Syringe IV 10/08/24 14:43 Q15MIN PRN BG <50 OR BG <70 & pt unresponsive Glucagon 1 mg 09/08/24 14:44 Glucagon Inj 1 Mg Vial IM Q15MIN PRN BG <70, and no IV access Insulin Human Lispro 0 unit 09/08/24 17:00 09/09/24 11:40 Insulin Lispro (Admelog) 1 Unit/0.01 Ml Unit SC 10/08/24 16:59 Not Given AC [facility] Protocol Pantoprazole Sodium 40 mg 09/09/24 09:00 09/09/24 09:05 Pantoprazole 40 Mg Tablet PO 10/09/24 08:59 40 mg QDAY MALDONADO Administration Plan 34-year-old female with hypertension and prediabetes admitted for acute embolic infarcts to the right occipital, parietal, and frontal lobes, presenting with bilateral lower visual field distortion and right-sided headache, now undergoing workup for hypercoagulable state, cardioembolic source, and demyelinating disease, clinically improving with NIHSS 0. # Acute embolic cerebral infarction Multiple acute emboli to right occipital, parietal, and frontal lobes without large vessel occlusion or hemorrhage. Patient improving neurologically with stable exam MRI brain: Embolic infarcts R occipital, parietal, frontal lobes CT/MRA/CTA: No hemorrhage, no LVO NIHSS: 0 Plan: * Continue aspirin 81 mg daily * Add Plavix 75 mg x 21 days * YUNG pending ? evaluate for cardiac source * Hold anticoagulation until hypercoag labs and LP completed * HOB > 30?, aspiration precautions * Monitor for neurologic changes # Hypercoagulability evaluation Working up for primary or secondary thrombophilia given age and embolic stroke pattern. No OCP use, no known prior VTE, no family history * Coag labs pending: EMELY, APL, Protein C/S, Factor V, Prothrombin mutation, homocysteine, etc. * LP completed; CSF pending for MS workup Plan: * Await all hypercoagulability panels * Resume anticoagulation only after LP and full lab draw * Consider hematology input if labs return abnormal # Rule out MS / Demyelinating Disease MRI suggested possible demyelination as part of differential. 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 BP today 127/77 Home med: Amlodipine Plan: * Resume Amlodipine 5mg daily * Continue monitoring BP # Type 2 Diabetes Mellitus A1C mildly elevated, no acute issues A1C 6.5 FSBG today 149 Plan: * Monitor inpatient FSBG * Start patient on 500 mg of metformin on discharge * Continue diet control * Outpatient follow-up # Anemia ? microcytic Stable mild anemia with low MCV, smear sent Hgb 8.1, MCV 66, smear sent No evidence of hemolysis No GI bleed or blood loss Plan: * Monitor H/H * Await blood smear * Consider iron studies if not yet done Health Maintenance: Disposition: Telemetry, awaiting UYNG Diet: Regular (tolerating PO) DVT Prophylaxis: SCDs GI prophylaxis: Protonix 40 mg Code Status: Full Code ----- Plan discussed with attending physician Dr. Dueñas and senior resident Dr. Abbey MD PGY-1 Internal Medicine
[2024-09-09 15:22] LABS: INR 1.0 (0.9-1.3); Partial Thromboplastin Time 24.6 Seconds (22.0-36.0); Prothrombin Time 10.8 Seconds (9.0-12.2)
[2024-09-09] MEDS: BENZOCAINE 20% (Hurricaine) SPRAY 1 DOSE TOP (16:25)
[2024-09-09] MEDS: MIDAZOLAM INJ 1 MG/ML VIAL 2 ML 6 MG IVP (16:27)
[2024-09-09] MEDS: fentaNYL CIT INJ 50 mCg/ML AMP 2ML 100 MCG IVP (16:27)
[2024-09-09] MEDS: ATORVASTATIN CALCIUM 20 MG TABLET 40 MG PO (21:34)
[2024-09-10] VITALS: BP 124/85; PULSE 58; PULSE 66; RESP 19; TEMP 36.4; O2SAT 97
[2024-09-10 04:00] VITALS: BP 123/85; PULSE 56; PULSE 57; RESP 13; TEMP 36.5; O2SAT 98
[2024-09-10 05:54] LABS: Basophils # (Auto) 0.1 Thou/mm3 (0.0-0.2); Basophils % (Auto) 1 % (0-2.5); Eosinophils # (Auto) 0.2 Thou/mm3 (0.0-0.5); Eosinophils % (Auto) 2 % (0-10); Hematocrit 33.7 % (36.0-46.0); Hemoglobin 10.3 g/dL (12.0-16.0); Immature Granulocytes Auto 0.02 Thou/mm3 (0.00-0.00); Lymphocytes # (Auto) 1.8 Thou/mm3 (1.0-4.8); Lymphocytes % (Auto) 22 % (10-50); Mean Corpuscular HGB Conc 30.6 g/dl (31.0-37.0); Mean Corpuscular Hemoglobin 20.5 pg (25.0-35.0); Mean Corpuscular Volume 67 fL (80-100); Monocytes # (Auto) 0.6 Thou/mm3 (0.0-0.8); Monocytes % (Auto) 8 % (0-12); Neutrophils # (Auto) 5.3 Thou/mm3 (1.8-7.7); Neutrophils % (Auto) 67 % (37-80); Nucleated Red Blood Cell # 0.00 Thou/mm3 (0.00-0.00); Nucleated Red Blood Cell % 0 /100 WBC (0); Platelet Count 277 Thou/mm3 (140-440); RDW Standard Deviation 43.6 fL (36.4-46.3); Red Blood Count 5.03 Miln/mm3 (4.00-5.20); White Blood Count 7.9 Thou/mm3 (3.6-11.0)
[2024-09-10 06:00] VITALS: BMI 28.0
[2024-09-10 06:25] LABS: Alanine Aminotransferase 23 U/L (10-49); Albumin, Serum 4.1 gm/dL (3.5-5.0); Albumin/Globulin Ratio 1.5 (1.2-2.2); Alkaline Phosphatase 63 U/L (46-116); Anion Gap 11 (7-16); Aspartate Amino Transferase 22 U/L (0-34); BUN/Creatinine Ratio 24 Ratio (12-20); Bilirubin,Total 0.4 mg/dL (0.3-1.2); Blood Urea Nitrogen 17 mg/dL (9-23); Calcium 8.3 mg/dL (8.3-10.6); Calcium (Corrected) 8.3 mg/dL (8.5-10.1); Carbon Dioxide 23.4 mMol/L (20.0-31.0); Chloride 106 mMol/L (98-107); Creatinine (Component) 0.7 mg/dL (0.6-1.3); Estimated Creatinine Clearance 101.4 mL/min (>60); Globulin 2.7 gm/dL (2.3-3.5); Glucose 136 mg/dL (74-106); Magnesium 2.0 mg/dL (1.6-2.6); Osmolality,Calculated 282 (275-295); Phosphorous 3.3 mg/dL (2.4-5.1); Potassium 3.8 mMol/L (3.4-5.1); Sodium 140 mMol/L (136-145); Total Protein 6.8 gm/dL (5.7-8.2); eGFR > 60 See Note
[2024-09-10 08:00] VITALS: BP 126/77; PULSE 64; PULSE 66; RESP 16; TEMP 36.1; O2SAT 98
[2024-09-10] MEDS: CLOPIDOGREL BISULFATE 75 MG TABLET PO (08:24)
[2024-09-10] MEDS: ASPIRIN EC 81 MG TABEC PO (08:25)
[2024-09-10] MEDS: CALCIUM CARBONATE 600 MG TABLET PO (08:25)
[2024-09-10] MEDS: PANTOPRAZOLE 40 MG TABLET PO (08:25)
--- NOTE | 2024-09-10 08:33 | ESDS_ITS ---
<Statement entered by Andrea Dueñas MD - 09/13/24 08:34> I reviewed above note and agree with findings and plans. I have also personally examined the patient with medicine team and went over assessment and plan with medical team including internet consultant and resident physician. <Statement entered by Carlos Gutierrez MD - 09/10/24 12:59> I discussed and supervised with the internet consultant physician who took care of this patient. I personally saw and examined the patient. I agree with most of the assessment and plan. Disclaimer: Despite multiple revisions, due to the dictation software being used, the document bellow may not be free of grammatical errors including phonetic/typographic errors. However, this does not deter from our commitment to providing health care in the patient's best interest in mind. Plan of care discussed with attending Physician Dr. Leana Gutierrez MD PGY-3 Planned Discharge Date 09/10/24 DS: Providers Provider Date of admission: 09/08/24 14:39 Primary care physician: Physician No Primary/Family Admitting Provider: Mayte Champagne DO Attending Provider on Admission: Mayte Champagne DO Consults: 09/08/24 15:05 Referral Physical Therapy Routine Comment: Physician Instructions: Referral Speech Therapy Stat Comment: 09/08/24 15:42 Consult to Neurology / Tele-Neurology Stat Comment: Consulting Provider: Freeman Sahni 09/09/24 09:51 Consult to Cardiology Routine Comment: YUNG Consulting Provider: Ilir Barahona Attending Provider on DC: Andrea Dueñas MD Discharging Provider: Nico Cueva DO Anticipated date of discharge: 09/10/24 DS: Diagnosis Problem List Completed Was Problem List Reviewed/Reconciled?: Yes Hospital Course Hospital Course Hospital course: Ms. Bang is a 34F with history of HTN and prediabetes controlled with diet admitted for acute embolic stroke with bilateral lower vision field distortion. On initial examination in the ED, pt does not have any focal neuro deficit. The only complaint she had was a right sided headache that had been going on for a week, and vision distortion localized to lower vision field. She has a NIHSS of 0. Motor, sensory, coordination, and CN II-XII intact upon initial encounter. [place] MRI with MRA shows multiple embolic type acute infarcts to right occipital lobe, right parietal lobe, and right frontal lobe. Venogram MRI shows no filling defects. CT head negative for acute hemorrhage, mass effect or midline shift. CTA Head and neck shows no significant neck arterial stenoses and no cerebral LVO. EKG NSR with rate of 83. Echo shows normal LV size and function, EF of 55- 60%. YUNG unremarkable per cardiology. CSF unremarkable, but still pending result for oligoclonal band. She was put on ASA 81mg and plavix 75mg during her stay. The pt was advised to follow up with neurology outpt regarding the result of her tests. Advised pt to follow up outpt regarding the results of her hypercoag ulopathy lab tests. Advised pt to take medications as instrcuted below. Pt's right sided headache had resolved prior to discharge. Pt is medically and physically stable for discharge. Diagnosis # Acute embolic cerebral infarction # Hypercoagulapathy # Demyelinating disease, possible MS # Hyperlipidemia # DM2 # HTN # Microcytic Anemia Discharge Plan: Take aspirin 81 mg once daily for more than a month, Plavix 75 mg once daily for 21 days and atorvastatin 40 mg at night daily Take Protonix 40 mg once daily before breakfast as you are taking aspirin Take metformin 500 mg twice daily as you were found to have A1c of 6.5 and diagnosed with diabetes Take amlodipine 5 mg once daily for blood pressure Follow-up with neurologist, Dr Sahni as outpatient within 2 weeks as you per found to have embolic stroke Follow-up with your hypercoagulable workup panel as outpatient which was ordered during hospital stay Follow-up with your PCP as outpatient within 2 weeks In case of emergency, call 911 and come back to the ED In case of bleeding from any site including nosebleed, trauma from any site with excessive bleeding immediately seek medical attention come to the ER In case you do not have a primary care doctor, follow-up in [facility] by calling [phone], call Thursday to Thursday 8 AM to 4 PM Case discussed with my senior resident Dr. Gutierrez Case discussed with my attending Dr. Leana Cueva, PGY 1 Time Spent with Patient Time attestation: Total time spent providing and/or coordinating discharge services: Time spent: Greater than 30 minutes Exam Vital Signs Temp Pulse Resp BP Pulse Ox O2 Del Method O2 Flow Rate 97.7 F 57 L 13 123/85 H 98 Room Air 2 09/10/24 04:00 09/10/24 04:00 09/10/24 04:00 09/10/24 04:00 09/10/24 04:00 09/10/24 04:00 09/10/24 00:00 Narrative Exam Gen: Well-appearing, conversant, NAD Neuro: AOx3, CN II-XII grossly intact, 5/5 strength all extremities, intact sensation, no dysmetria HEENT: NC/AT, PERRL, EOMI, no nystagmus, or facial asymmetry CV: RRR, no murmur Pulm: CTA bilaterally Abd: Soft, NT/ND Skin: Warm, dry, no rash Extremities: No edema, normal pulses Psych: Appropriate affect, cooperative Discharge Plan Plan Patient Disposition: HOME (Self Care) Care Plan Goals: Take aspirin 81 mg once daily for more than a month, Plavix 75 mg once daily for 21 days and atorvastatin 40 mg at night daily Take Protonix 40 mg once daily before breakfast as you are taking aspirin Take metformin 500 mg twice daily as you were found to have A1c of 6.5 and diagnosed with diabetes Take amlodipine 5 mg once daily for blood pressure Follow-up with neurologist, Dr Sahni as outpatient within 2 weeks as you per found to have embolic stroke Follow-up with your hypercoagulable workup panel as outpatient which was ordered during hospital stay Follow-up with your PCP as outpatient within 2 weeks In case of emergency, call 911 and come back to the ED In case of bleeding from any site including nosebleed, trauma from any site with excessive bleeding immediately seek medical attention come to the ER In case you do not have a primary care doctor, follow-up in [facility] by calling [phone], call Thursday to Thursday 8 AM to 4 PM Prescriptions/Referrals Prescriptions/Med Rec: New atorvastatin 40 mg tablet 40 mg PO HS Qty: 90 0RF clopidogrel 75 mg Tablet 75 mg PO QDAY Qty: 21 0RF metformin 500 mg tablet 500 mg PO BID Qty: 90 0RF aspirin 81 mg capsule 81 mg PO QDAY Qty: 90 0RF pantoprazole [Protonix] 40 mg tablet,delayed release (DR/EC) 40 mg PO QDAY Qty: 14 0RF Continued amlodipine 5 mg tablet 5 mg PO QDAY Referrals: Kranthi Lockhart, TRUNG RE [Resident] - No Primary/Family,Physician [Primary Care Provider] - Boni Nicolas MD [Resident] - Freeman Sahni MD [Physician] - Patient/Caregiver Discharge Instructions Education Materials: Stroke: Taking Medicines, Stroke: Tips for Swallowing, Discharge Instructions for Stroke, Stroke Self Care After, Stroke Prevention Activity Print Language: Syriac Stand Alone Forms: Larisa Award Info., Patient Portal Info Letter Discharge Order Discharge Orders: Discharge (Routine); Ordered 09/10/24 Ordered By: Carlos Gutierrez Quality Discharge Quality Measures none
--- NOTE | 2024-09-10 09:04 | PCS.ST ---
No formal speech services warranted. No dysphagia. Baseline cognitive/communication skills.
--- NOTE | 2024-09-10 09:46 | PC.SS ---
Per morning rounding, pt will d/c today to home. Pt will need to f/u with PCP. Pt is pending YUNG. Hypercoagulation workup pending. MS panel pending.
[2024-09-10 12:00] VITALS: BP 130/80; PULSE 62; PULSE 76; RESP 18; TEMP 36.1; O2SAT 98
[2024-09-10 13:00] VITALS: BP 137/85; PULSE 76; RESP 18; TEMP 36.4; O2SAT 98
--- NOTE | 2024-09-11 01:07 | VVPN_ITS ---
Telemedicine visit statement This visit was conducted with the use of phone was obtained on 09/10/24 Documentation for date of: 09/10/24 Subjective Subjective Interval history: Patient is in telemetry, no issues overnight, no new symptoms reported. Virtual exam Vital Signs Temp Pulse Resp BP Pulse Ox O2 Del Method O2 Flow Rate 97.6 F 76 18 137/85 H 98 Room Air 2 09/10/24 13:00 09/10/24 13:00 09/10/24 13:00 09/10/24 13:00 09/10/24 13:00 09/10/24 13:00 09/10/24 00:00 Objective Labs 09/10/24 05:04 09/10/24 05:04 Labs: Laboratory Results - last 24 hr 09/10/24 05:04 WBC 7.9 RBC 5.03 Hgb 10.3 L Hct 33.7 L MCV 67 L MCH 20.5 L MCHC 30.6 L RDW Std Deviation 43.6 Plt Count 277 Neut % (Auto) 67 Lymph % (Auto) 22 [place] % (Auto) 8 Eos % (Auto) 2 Baso % (Auto) 1 Neut # (Auto) 5.3 Lymph # (Auto) 1.8 [place] # (Auto) 0.6 Eos # (Auto) 0.2 Baso # (Auto) 0.1 Immature Gran # (Auto) 0.02 H Absolute Nucleated RBC 0.00 Immature Gran % 0 Nucleated RBC % 0 Sodium 140 Potassium 3.8 Chloride 106 Carbon Dioxide 23.4 Anion Gap 11 BUN 17 Creatinine 0.7 Estim Creat Clear Calc 101.4 eGFR > 60 BUN/Creatinine Ratio 24 H Glucose 136 H Calculated Osmolality 282 Calcium 8.3 Corrected Calcium 8.3 L Phosphorus 3.3 Magnesium 2.0 Total Bilirubin 0.4 AST 22 ALT 23 Alkaline Phosphatase 63 Total Protein 6.8 Albumin 4.1 Globulin 2.7 Albumin/Globulin Ratio 1.5 Assessment & Plan Problem List (1) Embolic cerebral infarction: Status: Acute Assessment and plan: Continue DAPT therapy for 60 days, statin, better BP and DM control no focal deficit on exam. Headache and vision prob: resolved. YUNG: negative CSF for MS panel: pending fu with extended holter monitoring and hypercoag panel. Stable for d/c home and fu in 2 weeks with me.
[2024-09-13 06:48] LABS: VDRL, CSF Qual* NON-REACTIVE
[2024-09-13 06:55] LABS: ANA Screen, IFA NEGATIVE (NEGATIVE)
[2024-09-14 06:40] LABS: Antithrombin III, Activity 99 % normal (80-135); Antithrombin III, Antigen 98 % normal (80-120); PTT-LA Screen 36 seconds (< OR = 40); Protein C Activity* 135 % normal (70-180); Protein S Activity* 76 % normal (60-140); dRVVT Screen 37 seconds (< OR = 45)
[2024-09-14 15:36] LABS: Albumin, CSF 13.1 mg/dL (8.0-42.0); IgG Index, CSF 0.53 (<0.70); IgG, CSF 2.2 mg/dL (0.8-7.7); IgG, Serum 1400 mg/dL (600-1640); Synthesis Rate IgG, CSF -3.8 mg/24 h (-9.9 TO +3.3)
[2024-09-15 06:32] LABS: Albumin, Serum 4.4 g/dL (3.6-5.1)
[2024-09-15 06:33] LABS: Angiotensin Convert Enz, CSF* <5 U/L (< OR = 15); Myelin Basic Protein, CSF* <2.0 mcg/L (< OR = 4.0); Oligoclonal Bands, CSF* ABSENT (ABSENT)
[2024-09-15 08:49] LABS: Cardiolipin Ab IgA >65.0 APL-U/mL; Cardiolipin Ab IgG >112.0 GPL-U/mL
[2024-09-16 06:19] LABS: Factor V Leiden Mutation NEGATIVE; Homocysteine* 6.8 umol/L (< OR = 11.0); Phos.Serine Ab IgG <9 U (< OR = 30)
[2024-09-16 06:20] LABS: B2-Glycoprotein I Ab IgA 58.7 U/mL; B2-Glycoprotein I Ab IgG >112.0 U/mL; B2-Glycoprotein I Ab IgM 37.2 U/mL; Cardiolipin Ab IgM 30.5 MPL-U/mL; Phos.Serine Ab IgM 66 U (< OR = 30)
== END 2024-09-10 13:17 | disposition home or self-care (01) | DRG 45 ==
LOC: SERX 13:49 → SERHOLD 15:34 → S2NX 18:30
PROVIDERS: Physician Assistant; Psychiatry & Neurology Neurology; Admitting Provider Internal Medicine; Emergency Provider Emergency Medicine; Visit Provider Internal Medicine
DX: I63.40 Cerebral infarction due to embolism of unspecified cerebral artery (principal); H54.62 Unqualified visual loss, left eye, normal vision right eye; I10 Essential (primary) hypertension; E78.5 Hyperlipidemia, unspecified; G37.9 Demyelinating disease of central nervous system, unspecified; D50.9 Iron deficiency anemia, unspecified; E11.9 Type 2 diabetes mellitus without complications; Z79.82 Long term (current) use of aspirin; Z79.899 Other long term (current) drug therapy
CPT/HCPCS: 36415; 70450; 70496; 70498; 70544; 70551; 80053; 80061; 81025; 81240; 81241; 82040; 82042; 82164; 82784; 82945; 82947; 83036; 83090; 83735; 83873; 83916; 84100; 84157; 84443; 84703; 85025; 85300; 85301; 85303; 85306; 85610; 85613; 85730; 86038; 86146; 86147; 86148; 86171; 86592; 89051; 93005; 93306; 93312; 97161; 99284; A4649; J2250; J3010; J3475; Q9967; A9270